=== PATIENT | male | born 1965 | race Hispanic/Latino ===

== ENCOUNTER 2016-12-08 09:59 | Observation (INO) | payer OTHER ==
[~2016-12-08] VITALS: Ht 180.3 cm; Wt 89.8 kg
[~2016-12-08 09:59] MED LIST: ALBUTEROL0.09 MG/A1 INH; CRESTOR 10MG10 MG PO; DEXILANT60 MG PO; INVOKANA300 MG PO; LEVEMIR FL300 UNITS/ SC; METANX PO; NOVOLOG 10300 UNITS/; NOVOLOG100 U/ML SC; PRINIVIL 5MG5 MG PO; TRICOR145 MG PO; VIAGRA100 MG PO
--- NOTE | 2016-12-08 10:06 | NUR ---
51 YEAR OLD MALE COMPLAINS OF SHARP 6/10 NON RADIATING L SIDE CP FOR THE PAST 30 MINUTES. STATES THAT HIS L HAND DID GO NUMB BRIEFLY. DENIES SOB.PT WAS AT REST WHEN IT STARTED
[2016-12-08 10:17] LABS: ABSOLUTE BASOPHIL COUNT 0 /CUMM (0.0-0.2); ABSOLUTE EOSINOPHIL COUNT 0.1 /CUMM (0.0-0.7); ABSOLUTE GRANULOCYTE CT 7.3 /CUMM (1.4-6.5); ABSOLUTE MONOCYTE COUNT 0.3 /CUMM (0.10-0.60); BASOPHIL % 0.2 % (0.0-2.0); EOSINOPHIL % 0.8 % (0-5); HEMATOCRIT 45.4 % (42-52); MEAN CORPUSCULAR HGB 27.9 PG (27.0-31.0); MEAN CORPUSCULAR HGB CONC 33.3 G/DL (33.0-37.0); MEAN CORPUSCULAR VOLUME 83.7 FL (80.0-94.0); MEAN PLATELET VOLUME 9.9 FL (7.4-10.4); PLATELET COUNT 214 /CUMM (130-400); RBC DISTRIBUTION WIDTH 13.4 % (11.5-14.5); RED BLOOD CELL CT 5.42 /CUMM (4.70-6.10); WHITE BLOOD CELL COUNT 8.7 /CUMM (4.8-10.8)
[2016-12-08 10:36] LABS: GRANULOCYTE % 83.7 % (42.2-75.2)
--- NOTE | 2016-12-08 10:54 | ED CARDIAC/CP/PALPITATIONS ---
History of Present Illness General Chief Complaint: Chest Pain Stated Complaint: CHEST PAIN Source: patient, family Exam Limitations: no limitations Vital Signs & Intake/Output Vital Signs & Intake/Output Vital Signs Date Time Temp Pulse Resp B/P Pulse O2 O2 Flow FiO2 Ox Delivery Rate 12/09 1600 Room Air 12/09 1559 97.8 101 20 120/88 95 Room Air 12/09 1351 94 116/76 12/09 1006 97.7 75 20 124/70 95 ED Intake and Output 12/10 0000 12/09 1200 Intake Total 400 0 Output Total Balance 400 0 Intake, Oral 400 0 Allergies Coded Allergies: NO KNOWN ALLERGIES (08/13/15) Reconcile Medications Albuterol Sulfate (Albuterol Sulfate Hfa) 0.09 MG/Actuation JULIANNE 2 PUFF INH PRN SHORTNESS OF BREATH (Reported) 90 MCG PER PUFF Aspirin (Ecotrin*) 81 MG TABLET. 81 MG PO DAILY Antiplatelet Therapy Canagliflozin (Invokana) 300 MG TABLET 300 MG PO DAILY DIABETES (Reported) Dexlansoprazole (Dexilant) 60 MG CAP.BP 1 CAP PO DAILY STOMACH (Reported) Fenofibrate (Tricor) 145 MG TAB 145 MG PO DAILY TRIGLYCERIDES (Reported) Insulin Aspart, Recombinant (Novolog) 100 U/ML RODDY 0 UNITS SC TIDAC GLUCOSE CONTROL (Reported) BLOOD SUGAR # OF UNITS < 80 NONE 80-150 NONE 151-200 4 UNITS 201-250 6 UNITS 251-300 8 UNITS 301-350 10 UNITS 351-400 12 UNITS >400 14 UNITS and call Insulin Degludec (Tresiba Flextouch U-200) 200 UNIT/ML (3 ML) INSULN.PEN 70 U SC QPM DIABETES (Reported) Lisinopril (Prinivil) 5 MG TABLET 1 TAB PO DAILY BP (Reported) Rosuvastatin Calcium (Crestor) 10 MG TABLET 1 TAB PO DAILY CHOLESTROL ( Reported) Triage Note: 51 YEAR OLD MALE COMPLAINS OF SHARP 6/10 NON RADIATING L SIDE CP FOR THE PAST 30 MINUTES. STATES THAT HIS L HAND DID GO NUMB BRIEFLY. DENIES SOB. Triage Nurses Notes Reviewed? yes HPI: Patient presents for evaluation of a left chest pain that began abruptly at about 9:30 this morning while sitting. Patient describes it as a tight and stabbing feeling with a transient left arm numbness. He also felt dyspneic initially but that has also resolved. The pain is currently a 6 out of 10 in intensity and its been constant since onset. He denies any prior episodes. Nothing seems to make the pain feel better. Past History Travel History Traveled to [place] past 21 day No Medical History Any Pertinent Medical History? 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 No Review of Systems Review of Systems Constitutional: Reports: no symptoms. EENTM: Reports: no symptoms. Respiratory: Reports: see HPI. Cardiovascular: Reports: see HPI. GI: Reports: no symptoms. Genitourinary: Reports: no symptoms. Musculoskeletal: Reports: no symptoms. Skin: Reports: no symptoms. Neurological/Psychological: Reports: tingling. Hematologic/Endocrine: Reports: no symptoms. Immunologic/Allergic: Reports: no symptoms. All Other Systems: Reviewed and Negative Physical Exam Physical Exam Cardiovascular: SEE BELOW Comments: Gen.: Well-nourished, well-developed, no acute respiratory distress. Head: Normocephalic, atraumatic. Eyes: Normal inspection bilaterally Ears: Normal inspection bilaterally Nose: Normal inspection Throat/mouth : Moist mucosa Neck: Supple, full range of motion, no goiter Heart: Regular rate and rhythm, no murmurs rubs or gallops Lungs: Clear to auscultation bilaterally with normal air entry Chest: Nontender Back: Normal range of motion Abdomen: Soft, nontender, nondistended, normal bowel sounds Extremities: Normal range of motion grossly, equal radial pulses, no cyanosis clubbing or edema, calves nontender Neurologic: Cranial nerves grossly intact, speech is clear Skin: warm and dry Psychiatric: Calm, cooperative, no apparent delusions or hallucinations Core Measures ACS in differential dx? Yes Severe Sepsis Present: No Septic Shock Present: No Progress Differential Diagnosis: AMI, aortic dissection, costochondritis, musculoskeletal pain, myocarditis, pericarditis, pneumonia, pneumothorax, pulmonary embolism, PUD/GERD, unstable angina Plan of Care: Orders Procedure Date/time Status Consistent Carbohydrate 3 12/09 L Active Discharge Patient 12/09 UNK Active Laboratory Tests 12/09/16 0648: Anion Gap 11, Estimated GFR 59 L, BUN/Creatinine Ratio 27.7 H, Magnesium 2.2 Diagnostic Imaging: Discussed w/RAD: Radiology Read. CXR Impression: PATIENT: MARCO LARA PRESENT AGE: 51 PATIENT ACCOUNT NO: [id number] : 67 LOCATION: [facility] ORDERING PHYSICIAN: RIDDHI LANE MD SERVICE DATE: 12/08/16 EXAM TYPE: RAD - XRY-CHEST XRAY, PA AND LATERAL EXAMINATION: XR CHEST CLINICAL INFORMATION: Left chest pain with history of hypertension. COMPARISON: Chest x-ray 08/13/2015. TECHNIQUE: PA and lateral views of the chest were obtained. FINDINGS: There is central vascular congestion without overt edema. Accounting for low lung volumes, cardiac silhouette size is likely normal and stable. There is no superior mediastinal widening. There is no focal consolidation, pleural effusion, or pneumothorax. There are no acute osseous findings. IMPRESSION: Central vascular congestion without overt edema. The lungs are otherwise clear. DICTATED BY: RIDDHI ROSS MD DATE/TIME DICTATED:12/08/161144 TITLE CLERK:TRENT DATE/TIME TRANSCRIBED:12/08/161144 CONFIDENTIAL, DO NOT COPY WITHOUT APPROPRIATE AUTHORIZATION. <Electronically signed in Other Vendor System> SIGNED BY: RIDDHI ROSS MD 12/08/16 1151 Initial ED EKG: NSR, rate (77) Comments: 12/08/2016 12:35:13 PM patient had no relief with sublingual nitroglycerin. He was just administered a GI cocktail and a dose of IV ketorolac with resolution of his pain. At this point he denies any left upper extremity paresthesias or chest pain/discomfort. I'LL page Dr. Trujillo. Departure Departure Disposition: STILL A PATIENT Condition: Stable Clinical Impression Primary Impression: Chest pain Qualifiers: Chest pain type: unspecified Qualified Code: R07.9 - Chest pain, unspecified Referrals: DIDI TRUJILLO MD (PCP/Family) Departure Forms: Customer Survey General Discharge Information Prescriptions: Current Visit Scripts Aspirin (Ecotrin*) 81 MG PO DAILY #30 Observation Note Spoke With: DIDI TRUJILLO MD Physician Advisor Notified: ANGELO KOROMA MD Place Patient In: Non-ED OBS Care Area Rationale for Observation: My rational for observation is as follows and has multiple risk factors for coronary artery disease and presents with left chest pain syndrome with associated transient upper extremity paresthesias and dyspnea. He is at high risk of coronary artery disease/acute coronary syndrome/CA. Given this I do not feel he is a good candidate for outpatient management at this time. He requires continuous cardiac monitoring for potential ischemic associated dysrhythmias and serial troponin determinations for possible CA. He should also have cardiology consultation and optimization of medications. Additional studies such as stress testing or cardiac catheterization should be considered as well. Critical Care Note Critical Care Note Critical Care Time: 30-74 min
--- NOTE | 2016-12-08 11:00 | NUR ---
AMBULATORY TO ROOM [address] INTO EVAL ON ARRIVAL TO ROOM
--- NOTE | 2016-12-08 11:12 | NUR ---
PT TO RAD BY STRETCHER.
[2016-12-08] MEDS ORDERED: TRESIBA FL200 UNIT/1 SC (11:24)
--- NOTE | 2016-12-08 11:32 | NUR ---
PT RETURNED FROM RAD, IV EST RH 20, PT MEIDCATED WITH NITRO 0.4 SL PER EMAR. VSS.
--- NOTE | 2016-12-08 11:51 | RADIOLOGY REPORT ---
EXAMINATION: XR CHEST CLINICAL INFORMATION: Left chest pain with history of hypertension. COMPARISON: Chest x-ray 08/13/2015. TECHNIQUE: PA and lateral views of the chest were obtained. FINDINGS: There is central vascular congestion without overt edema. Accounting for low lung volumes, cardiac silhouette size is likely normal and stable. There is no superior mediastinal widening. There is no focal consolidation, pleural effusion, or pneumothorax. There are no acute osseous findings. IMPRESSION: Central vascular congestion without overt edema. The lungs are otherwise clear.
--- NOTE | 2016-12-08 11:52 | NUR ---
PT REPORTS NO CHANGE IN CHEST PAIN AFTER NITRO ADMIN. BP 123/82, HR 76 AT THIS TIME. MD ARIANA MADE AWARE.
--- NOTE | 2016-12-08 12:16 | NUR ---
PT MEDICATED WITH TORADOL AND GI COCKTAIL PER EMAR.
--- NOTE | 2016-12-08 13:48 | NUR ---
MD ARIANA TO BEDSIDE TO DISCUSS POC.
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
--- NOTE | 2016-12-08 14:11 | NUR ---
HOUSE STAFF TO BEDSIDE FOR PT EVAL.
--- NOTE | 2016-12-08 18:28 | Cons- Cardiology ---
General Information and HPI Consulting Request Date of Consult: 12/08/16 Requested By: DIDI CHENG MD Reason for Consult: Chest discomfort. Source of Information: patient, family Exam Limitations: no limitations History of Present Illness: Mr. Ventura Ellis is a 51-year-old male with a history of hiatal hernia, gastroesophageal reflux disease, previously documented esophagitis, gastritis, duodenitis, nonobstructing Schatzki's ring, mild COPD, hypertension, dyslipidemia, and diabetes mellitus who presented from his workplace after experiencing chest discomfort this morning. He states that at around approximately 9:30 AM he began to experience "sharp", left precordial, chest discomfort with associated "tingling" in his left arm of moderate ("7/10") intensity without radiation or other associated symptoms. 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 One of his coworkers drove him to the [facility] emergency department. The discomfort lasted over one hour in duration before spontaneously resolved. At present, he is chest free and has no other symptoms. He denies any similar complaints in the past. He also denies any history of coronary, valvular, dysrhythmic/conduction disease or cardiomyopathy. Allergies/Medications Allergies: Coded Allergies: NO KNOWN ALLERGIES (08/13/15) Home Med List: Albuterol Sulfate (Albuterol Sulfate Hfa) 0.09 MG/Actuation JULIANNE 2 PUFF INH PRN SHORTNESS OF BREATH (Reported) 90 MCG PER PUFF Canagliflozin (Invokana) 300 MG TABLET 300 MG PO DAILY DIABETES (Reported) Dexlansoprazole (Dexilant) 60 MG OSWALDO.BP 1 CAP PO DAILY STOMACH (Reported) Fenofibrate (Tricor) 145 MG TAB 145 MG PO DAILY TRIGLYCERIDES (Reported) Insulin Aspart, Recombinant (Novolog) 100 U/ML RODDY 0 UNITS SC TIDAC GLUCOSE CONTROL (Reported) BLOOD SUGAR # OF UNITS < 80 NONE 80-150 NONE 151-200 4 UNITS 201-250 6 UNITS 251-300 8 UNITS 301-350 10 UNITS 351-400 12 UNITS >400 14 UNITS and call Insulin Degludec (Tresiba Flextouch U-200) 200 UNIT/ML (3 ML) INSULN.PEN 70 U SC QPM DIABETES (Reported) Lisinopril (Prinivil) 5 MG TABLET 1 TAB PO DAILY BP (Reported) Rosuvastatin Calcium (Crestor) 10 MG TABLET 1 TAB PO DAILY CHOLESTROL ( Reported) Review of Systems Review of Systems: A 14 point system review was obtained and was noncontributory, other than as above. 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 Home Who Do You Live With? Fiance Services at Home: None Primary Language: Portuguese ETOH Use: denies use Illicit Drug Use: denies illicit drug use Functional Ability ADLs Independent: dressing, eating, toileting, bathing. Ambulation: independent IADLs Independent: shopping, housework, finances, food prep, telephone, transportation , medication admin. 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 Vital signs: See above. HEENT: Normocephalic, atraumatic, EOMI, moist mucous membranes. Neck: No JVD, no bruits. Lungs: Clear to auscultation bilaterally. Heart: S1, S2 with no murmur, gallop, or rub appreciated. PMI fifth ICS at MCL. Abdomen: Soft, nontender, positive bowel sounds. Extremities: No edema. Peripheral pulses: Symmetrical and intact. Labs/Arjun Results: Laboratory Tests 12/08 12/08 12/08 1600 1406 1011 Chemistry Sodium (137 - 145 mmol/L) 139 Potassium (3.5 - 5.1 mmol/L) 4.4 Chloride (98 - 107 mmol/L) 97 L Carbon Dioxide (22 - 30 mmol/L) 27 Anion Gap (5 - 16) 15 BUN (9 - 20 mg/dL) 26 H Creatinine (0.7 - 1.2 mg/dL) 1.2 Estimated GFR (>60 ml/min) > 60 BUN/Creatinine Ratio (7 - 25 %) 21.7 Glucose (65 - 99 mg/dL) 192 H Calcium (8.4 - 10.2 mg/dL) 9.6 Magnesium (1.6 - 2.3 mg/dL) 2.2 Total Bilirubin (0.2 - 1.3 mg/dL) 0.8 AST (17 - 59 U/L) 21 ALT (21 - 72 U/L) 33 Alkaline Phosphatase (< 127 U/L) 79 Troponin I (<0.11 ng/ml) < 0.01 Cancelled < 0.01 [id number]-Hynzxmrioxa Pept (<125 pg/mL) 14.8 Total Protein (6.3 - 8.2 g/dL) 7.8 Albumin (3.5 - 5.0 g/dL) 4.4 Globulin (1.9 - 4.2 gm/dL) 3.4 Albumin/Globulin Ratio (1.1 - 2.2 %) 1.3 Triglycerides (<150 mg/dL) 166 H Cholesterol (< 200 MG/DL) 166 LDL Cholesterol, Calc (65 - 129 mg/dL) 85 HDL Cholesterol (40 - 60 mg/dL) 48 Cholesterol/HDL Ratio (0.00 - 4.88 %) 3 Hematology CBC w Diff NO MAN DIFF REQ WBC (4.8 - 10.8 /CUMM) 8.7 RBC (4.70 - 6.10 /CUMM) 5.42 Hgb (14.0 - 18.0 G/DL) 15.1 Hct (42 - 52 %) 45.4 MCV (80.0 - 94.0 FL) 83.7 MCH (27.0 - 31.0 PG) 27.9 RDW (11.5 - 14.5 %) 13.4 Plt Count (130 - 400 /CUMM) 214 MPV (7.4 - 10.4 FL) 9.9 Gran % (42.2 - 75.2 %) 83.7 H Lymphocytes % (20.5 - 51.1 %) 12.1 L Monocytes % (1.7 - 9.3 %) 3.2 Eosinophils % (0 - 5 %) 0.8 Basophils % (0.0 - 2.0 %) 0.2 Absolute Granulocytes (1.4 - 6.5 /CUMM) 7.3 H Absolute Lymphocytes (1.2 - 3.4 /CUMM) 1.0 L Absolute Monocytes (0.10 - 0.60 /CUMM) 0.3 Absolute Eosinophils (0.0 - 0.7 /CUMM) 0.1 Absolute Basophils (0.0 - 0.2 /CUMM) 0 PUBS MCHC (33.0 - 37.0 G/DL) 33.3 12/08 1006 Chemistry Hemoglobin A1c Pending Diagnostic Data EKG Results (12/08/2016) sinus rhythm and mild nonspecific intraventricular conduction delay. No significant change when compared to previous tracing performed earlier CXR Results (12/08/2016) There is central vascular congestion without overt edema. Accounting for low lung volumes, cardiac silhouette size is likely normal and stable. There is no superior mediastinal widening. There is no focal consolidation, pleural effusion, or pneumothorax. There are no acute osseous findings. Assessment/Plan Assessment/Plan Prolonged episode of chest discomfort of uncertain etiology in this middle-aged male with a risk equivalent and multiple risk factors for coronary artery disease, as well as, a hiatal hernia, gastroesophageal reflux disease with previously documented esophagitis, gastritis, duodenitis, nonobstructing Schatzki's ring, etc. without evidence of myocardial necrosis thus far by troponin I determinations and no acute electrocardiographic changes to suggest an acute coronary syndrome. Recommendations: * Telemetry admission, follow-up troponins, follow-up electrocardiogram in the morning or with further chest discomfort. * Echocardiogram to assess for segmental wall motion abnormalities and overall left ventricular systolic/diastolic function. * Schedule for nuclear treadmill stress test in a.m. * Continue present cardiac regimen (statin, fibric acid derivative, MARK inhibitor). * Start antiplatelet therapy (enteric-coated aspirin 81 mg daily). * Given GI history, check stool for occult blood and schedule outpatient GI follow-up if stool negative for occult blood and noninvasive cardiac evaluation negative. * As he is chest discomfort free at this time, would hold off on IV heparin unless he has further chest discomfort. * Given significantly elevated glycosylated hemoglobin A1c, consider endocrine evaluation. * DVT prophylaxis. Other recommendations will follow, Thank you. Consult Acknowledgment - Thank you for your consult request.
[2016-12-08 19:22] VITALS: BP 138/72
--- NOTE | 2016-12-08 21:15 | Admission Certification ---
Admission Certification Certification Statement - As attending physician, I certify that at the time of - admission, based on clinical presentation, severity of - symptoms, need for further diagnostic testing and - therapeutic interventions, and risk of adverse outcomes - without in-hospital treatment, in my clinical assessment, - this patient requires an acute hospital stay for a minimum - of two nights or longer. I have also considered psychsocial - factors such as support system, advanced age, financial - issues, cognitive issues, and failed out-patient treatments, - past re-admission history, safety of patient, and lack of - compliance as applicable. Specific rationale supporting this admission is: chest pain in a diabetic patient.
--- NOTE | 2016-12-08 21:17 | NUR ---
BED ASSIGNMENT 179-01
--- NOTE | 2016-12-08 21:18 | PN- Att Addend ---
Attending Addendum Attending Brief Note 51 year old male diabetic this am at work started with chest pain tingling in left arm came to the ER the pain subsided after 1 hour, will monmitor serial EKGs the first one no acute changes compared to previous one, serial troponins cardiology consultation. Laboratory Tests 12/08 12/08 12/08 1600 1406 1011 Chemistry Sodium (137 - 145 mmol/L) 139 Potassium (3.5 - 5.1 mmol/L) 4.4 Chloride (98 - 107 mmol/L) 97 L Carbon Dioxide (22 - 30 mmol/L) 27 Anion Gap (5 - 16) 15 BUN (9 - 20 mg/dL) 26 H Creatinine (0.7 - 1.2 mg/dL) 1.2 Estimated GFR (>60 ml/min) > 60 BUN/Creatinine Ratio (7 - 25 %) 21.7 Glucose (65 - 99 mg/dL) 192 H Calcium (8.4 - 10.2 mg/dL) 9.6 Magnesium (1.6 - 2.3 mg/dL) 2.2 Total Bilirubin (0.2 - 1.3 mg/dL) 0.8 AST (17 - 59 U/L) 21 ALT (21 - 72 U/L) 33 Alkaline Phosphatase (< 127 U/L) 79 Troponin I (<0.11 ng/ml) < 0.01 Cancelled < 0.01 Faq-O-Tmwecgrzpjo Pept (<125 pg/mL) 14.8 Total Protein (6.3 - 8.2 g/dL) 7.8 Albumin (3.5 - 5.0 g/dL) 4.4 Globulin (1.9 - 4.2 gm/dL) 3.4 Albumin/Globulin Ratio (1.1 - 2.2 %) 1.3 Triglycerides (<150 mg/dL) 166 H Cholesterol (< 200 MG/DL) 166 LDL Cholesterol, Calc (65 - 129 mg/dL) 85 HDL Cholesterol (40 - 60 mg/dL) 48 Cholesterol/HDL Ratio (0.00 - 4.88 %) 3 Hematology CBC w Diff NO MAN DIFF REQ WBC (4.8 - 10.8 /CUMM) 8.7 RBC (4.70 - 6.10 /CUMM) 5.42 Hgb (14.0 - 18.0 G/DL) 15.1 Hct (42 - 52 %) 45.4 MCV (80.0 - 94.0 FL) 83.7 MCH (27.0 - 31.0 PG) 27.9 RDW (11.5 - 14.5 %) 13.4 Plt Count (130 - 400 /CUMM) 214 MPV (7.4 - 10.4 FL) 9.9 Gran % (42.2 - 75.2 %) 83.7 H Lymphocytes % (20.5 - 51.1 %) 12.1 L Monocytes % (1.7 - 9.3 %) 3.2 Eosinophils % (0 - 5 %) 0.8 Basophils % (0.0 - 2.0 %) 0.2 Absolute Granulocytes (1.4 - 6.5 /CUMM) 7.3 H Absolute Lymphocytes (1.2 - 3.4 /CUMM) 1.0 L Absolute Monocytes (0.10 - 0.60 /CUMM) 0.3 Absolute Eosinophils (0.0 - 0.7 /CUMM) 0.1 Absolute Basophils (0.0 - 0.2 /CUMM) 0 PUBS MCHC (33.0 - 37.0 G/DL) 33.3 12/08 1006 Chemistry Hemoglobin A1c Pending CXR no CHF.
--- NOTE | 2016-12-08 22:32 | NUR ---
PTADMITTED TO BED # 179-1. ORAL REPORT GIVEN TO ROX DONNELLY PT DENIES CP/SOB. PT READY FOR TRANSFER
[2016-12-08 22:39] VITALS: BP 128/78
[2016-12-08 23:03] VITALS: BP 138/84
--- NOTE | 2016-12-09 00:51 | NUR ---
PT ADMITTED TO ROOM # 179-1 AT ABOUT 2250 ON 12/08/15. PT IS A/O X3. VSS. 138/84,99,97.8,18,94% ON RA. NO C/O CP OR ANY OTHER TYPE OF PAIN. PT ORRIENTED TO ROOM. PT GIVEN WELCOME PACKET. SAFTEY MAINTAINED. CALL LANE WITHIN REACH.
--- NOTE | 2016-12-09 06:37 | PN- Housestaff ---
Subjective Follow-up For: Chest Pain Rule Out ACS Tele-Events Since Last Visit: Sinus Rhythm 70s - 80s No Events Subjective: Mr Sanchez was seen and examined this morning he reports no issues overnight. Patient is resting comfortably in bed. Patient is currently nothing by mouth owing to stress test that he is scheduled to go for this AM. Patient reports pain. Pain reported in the lower back. Likely due to chronic pain. Rated at a 2/10. Responds well to Tylenol. Patient denies any fevers, chills, nausea, vomiting. Review of Systems Constitutional: Reports: see HPI. Objective Last 24 Hrs of Vital Signs/I&O Vital Signs Date Time Temp Pulse Resp B/P Pulse O2 O2 Flow FiO2 Ox Delivery Rate 12/09 1600 Room Air 12/09 1559 97.8 101 20 120/88 95 Room Air 12/09 1351 94 116/76 12/09 1006 97.7 75 20 124/70 95 12/08 2303 97.8 99 18 138/84 94 Room Air 12/08 2239 97.0 81 20 128/78 97 Room Air 12/08 1922 97.8 77 16 138/72 97 Room Air 12/08 1909 97 Room Air Intake & Output 12/09 1600 12/09 0800 12/09 0000 Intake Total 400 0 240 Output Total 0 Balance 400 0 240 Intake, Oral 400 0 240 Output, Urine 0 Patient 89.811 kg Weight Physical Exam General Appearance: Alert, Oriented X3, No Acute Distress Lymphatic: Cervical nl Cardiovascular: Regular Rate, Normal S1, Normal S2 Lungs: Clear to Auscultation Abdomen: Normal Bowel Sounds, Soft, No Tenderness Neurological: Normal Gait, Strength at 5/5 X4 Ext Current Medications: Current Medications Sig/Beverly Start time Last Medication Dose Route Stop Time Status Admin Acetaminophen 650 MG Q6P PRN 12/08 1415 DCD PO Acetaminophen/ 1 TAB Q6P PRN 12/08 1415 DCD Hydrocodone Bitart PO Albuterol Sulfate 2 PUF TIDPRN PRN 12/08 1415 DCD INH Aspirin 81 MG DAILY 12/09 1000 CAN PO Aspirin Buffered 81 MG DAILY 12/09 1000 DCD 12/09 PO 1349 Atorvastatin Calcium 40 MG 1700 12/08 1700 DCD 12/08 PO 1735 Diphenhydramine HCl 25 MG Q6P PRN 12/08 1415 DCD IV Docusate Sodium 100 MG BID 12/08 2200 DCD 12/09 PO 1349 Enoxaparin Sodium 40 MG DAILY 12/09 1000 DCD 12/09 SC 1354 Fenofibrate 145 MG DAILY 12/09 1000 DCD 12/09 PO 1349 Insulin Aspart 0 TIDAC 12/08 1700 DCD 12/09 SC 1355 Insulin Detemir 10 UNITS BID 12/09 1000 DCD 12/09 SC 1352 Insulin Detemir 5 UNITS BID 12/08 2200 DC 12/09 SC 0230 Lisinopril 5 MG DAILY 12/09 1000 DCD 12/09 PO 1351 Lorazepam 1 MG ONE ONE 12/09 1145 DC 12/09 PO 12/09 1146 1157 Morphine Sulfate 2 MG Q4P PRN 12/08 1415 DCD IV Omeprazole 20 MG DAILY AC 12/09 0700 DCD PO Polyethylene Glycol 17 GM AT BEDTIME 12/08 2200 DCD 12/09 PO 0230 Prochlorperazine 10 MG Q6P PRN 12/08 1415 DCD IV Senna/Docusate Sodium 1 TAB AT BEDTIME 12/08 2200 DCD 12/08 PO 2215 Assessment/Plan Assessment: Mr Ellis is 51-year-old gentleman with significant medical history of diabetes who presented to the emergency department complaining of an episode of chest pain. #Chest pain/discomfort rule out ACS Admit the patient to telemetry. Maintain high index of suspicion as diabetics may present atypically with symptoms of ACS. Initial troponin and EKG were both negative for significant changes, elevations. Serial troponins and EKG every 6 and 12 hours respectively. Serial troponins less than 0.01 respectively. Cardiology consult for further recommendations, consult placed with Dr. Davenport Patient may benefit from addition of a beta srinivas. Patient scheduled to go for stress test this a.m. Enteric coated aspirin 81 mg began overnight. Patient would like to be discharged home on this medication. #History of diabetes Patient on sliding scale medium dose range and blood sugar between 120 and 140. Hemoglobin A1c for long-term glycemic control. Hemoglobin A1c 10.5. #History of GERD Continue PPI Patient is due to have colonoscopy in 2019. Patient was given a referral for GI consult as an outpatient. #History of hyperlipidemia Full Lipid panel Continue high-intensity statin #DVT Prophylaxis Lovenox #Diet Consistent carbohydrate to diet Patient may benefit from a nutritional consult. #Code Full code Problem List: 1. Chest pain 2. Atypical chest pain 3. Diabetes mellitus 4. Gastroenteritis Pain Ratin Pain Location: NA Pain Goal: Remain pain free Pain Plan: Tylenol PRN Tomorrow's Labs & Rationales: NA
[2016-12-09 08:00] VITALS: BP 150/78
[2016-12-09 10:06] VITALS: BP 124/70
--- NOTE | 2016-12-09 12:58 | PN- Att Addend ---
Attending Addendum Attending Brief Note Patient has no chest pain but complaining of a lot of heartburn and blood pressure slightly elevated at no other changes cardiology input appreciated going for the chemical stress test today depending on the results are disposition plans Current Medications Sig/Beverly Start time Last Medication Dose Route Stop Time Status Admin Acetaminophen 650 MG Q6P PRN 12/08 1415 AC PO Acetaminophen/ 1 TAB Q6P PRN 12/08 1415 AC Hydrocodone Bitart PO Albuterol Sulfate 2 PUF TIDPRN PRN 12/08 1415 AC INH Aspirin 81 MG DAILY 12/09 1000 CAN PO Aspirin 0 .STK-MED ONE 12/08 1443 DC PO Aspirin 325 MG ONCE ONE 12/08 1430 DC 12/08 PO 12/08 1431 1443 Aspirin Buffered 81 MG DAILY 12/09 1000 AC PO Atorvastatin Calcium 40 MG 1700 12/08 1700 AC 12/08 PO 1735 Diphenhydramine HCl 25 MG Q6P PRN 12/08 1415 AC IV Docusate Sodium 100 MG BID 12/08 2200 AC 12/08 PO 2214 Enoxaparin Sodium 40 MG DAILY 12/09 1000 AC SC Fenofibrate 145 MG DAILY 12/09 1000 AC PO Insulin Aspart 0 TIDAC 12/08 1700 AC 12/08 SC 1716 Insulin Detemir 10 UNITS BID 12/09 1000 AC SC Insulin Detemir 5 UNITS BID 12/08 2200 DC 12/09 SC 0230 Lisinopril 5 MG DAILY 12/09 1000 AC PO Lorazepam 1 MG ONE ONE 12/09 1145 DC 12/09 PO 12/09 1146 1157 Morphine Sulfate 2 MG Q4P PRN 12/08 1415 AC IV Omeprazole 20 MG DAILY AC 12/09 0700 AC PO Polyethylene Glycol 17 GM AT BEDTIME 12/08 2200 AC 12/09 PO 0230 Prochlorperazine 10 MG Q6P PRN 12/08 1415 AC IV Senna/Docusate Sodium 1 TAB AT BEDTIME 12/08 2199 AC 12/08 PO 2215 Laboratory Tests 12/09/16 0648: Anion Gap 11, Estimated GFR 59 L, BUN/Creatinine Ratio 27.7 H, Magnesium 2.2 12/08/16 2230: Troponin I < 0.01 12/08/16 1600: Troponin I < 0.01 12/08/16 1406: Troponin I Cancelled Vital Signs Date Time Temp Pulse Resp B/P Pulse O2 O2 Flow FiO2 Ox Delivery Rate 12/09 1006 97.7 75 20 124/70 95
--- NOTE | 2016-12-09 13:24 | Patient Discharge Instructions ---
Discharge Instructions General Discharge Information You were seen/treated for: Chest Pain Diabetes Watch for these problems: Fever, nausea, vomiting, chills, weakness, increased generalized edema. Palpitations. Chest pain. Shortness of breath. If you have any adverse reactions from any of the medications prescribed please inform your primary care physician and you may be required to come back to the emergency department. Thank you for letting us be part of your care Special Instructions: Please follow-up with your primary care physician on 12/12/2016. This is for a post hospital discharge follow-up. Please follow-up with the river crossing supervisor on 12/16/2016. We have provided you with a referral. You might be considered for additional Cardiac Testing. Please follow-up with your chemical engineering technician on 12/16/2016. Please follow-up with the Manager Visual on 12/16/2016. We have provided you with a referral. Diet Continue normal diet: No Recommended Diet: Diabetic Activity Activity Self Limited: Yes (As Tolerated) Additional ACTIVITY Info: As Tolerated Acute Coronary Syndrome Inclusion Criteria At DC or during hospital stay patient has or had the following: ACS DIAGNOSIS No Discharge Core Measures Meds if any: Prescribed or Continued at Discharge Meds if any: NOT Prescribed or Continued at Discharge Congestive Heart Failure Inclusion Criteria At DC or during hospital stay patient has or had the following: CHF DIAGNOSIS No Discharge Core Measures Meds if any: Prescribed or Continued at Discharge Meds if any: NOT Prescribed or Continued at Discharge Cerebrovascular accident Inclusion Criteria At DC or during hospital stay patient has or had the following: CVA/TIA Diagnosis No Discharge Core Measures Meds if any: Prescribed or Continued at Discharge Meds if any: NOT Prescribed or Continued at Discharge Venous thromboembolism Inclusion Criteria VTE Diagnosis No VTE Type NONE VTE Confirmed by (Test) NONE Discharge Core Measures - Per Current guidelines, there needs to be overlap - treatment for the first 5 days of Warfarin therapy. - If discharged on Warfarin prior to 5 days of - overlap therapy, the patient will need to be - assessed for post discharge needs including - *Post discharge parental anticoagulation - *Warfarin and/or parental anticoagulation education - *Follow up date to check INR post discharge At least 5 days overlap therapy as Inpatient No Meds if any: Prescribed or Continued at Discharge Note: Overlap Therapy is Warfarin and Anticoagulant Meds if any: NOT Prescribed or Continued at Discharge
[2016-12-09] MEDS ORDERED: ASPIRIN EC81 M1 PO (13:27)
--- NOTE | 2016-12-09 15:13 | NUCLEAR MEDICINE REPORT ---
EXAMINATION: NM NO CHARGE STUDY CLINICAL INFORMATION: Chest pain PROCEDURE NOTE: The patient was scheduled to undergo myocardial perfusion scintigraphy. The technologist injected 20.9 mCi of [id number] intravenously. Then, when imaging was attempted, the technologist reports that the patient refused the examination due to claustrophobia. The technologist also reports that imaging was reattempted multiple times without success and Dr. Hurley was contacted.
[2016-12-09 15:59] VITALS: BP 120/88
== END 2016-12-09 14:20 ==
LOC: ERH 09:59 → ERHI 13:31 → 1NO 13:31 → ERHI 20:41 → 1NO 22:50
PROVIDERS: Emergency Medicine; ADMIT Internal Medicine
DX: R07.9 Chest pain, unspecified (principal); I10 Essential (primary) hypertension; E78.5 Hyperlipidemia, unspecified; K21.9 Gastro-esophageal reflux disease without esophagitis; E11.9 Type 2 diabetes mellitus without complications; F41.9 Anxiety disorder, unspecified; J44.9 Chronic obstructive pulmonary disease, unspecified; J45.909 Unspecified asthma, uncomplicated
CPT/HCPCS: 2000; 36415; 82436; 93005; 93010; 93016; 93017; 96374; A9502; G0378; J0780; J1200; J1650; J1885; J3490

== ENCOUNTER 2017-12-02 09:39 | Emergency (ER) | payer OTHER ==
[~2017-12-02] VITALS: Ht 180.3 cm; Wt 89.8 kg
[~2017-12-02 09:39] MED LIST changes: -ALBUTEROL0.09 MG/A1 INH; +ASPIRIN EC81 M1 PO; -CRESTOR 10MG10 MG PO; +CRESTOR10 M1 PO; +DEXILANT60 M1 PO; -DEXILANT60 MG PO; +DULOXETINE HCL60 MG PO; +INVOKANA300 M1 PO; -INVOKANA300 MG PO; +METFORMIN HCL750 M1 PO; +NOVOLOG FL100 UNIT/1 SC; -NOVOLOG100 U/ML SC; +PAROXETINE HCL20 M1 PO; -PRINIVIL 5MG5 MG PO; +PRINIVIL5 M1 PO; +PROAIR HFA8.5 GM INH; +TRESIBA FL200 UNIT/1 SC; +TRICOR145 M1 PO; -TRICOR145 MG PO
[2017-12-02 09:46] VITALS: BP 145/84
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
[2017-12-02] MEDS ORDERED: NAPROXEN500 M2 PO (11:02)
[2017-12-02] MEDS ORDERED: CYCLOBENZAPRINE5 M2 PO (11:02)
== END 2017-12-02 11:15 ==
LOC: ERH 09:39
DX: S16.1XXA Strain of muscle, fascia and tendon at neck level, initial encounter (principal); S29.092A Other injury of muscle and tendon of back wall of thorax, initial encounter; V49.40XA Driver injured in collision with unspecified motor vehicles in traffic accident, initial encounter; Y92.410 Unspecified street and highway as the place of occurrence of the external cause